=== PATIENT | female | born 2000 | race Caucasian/White ===

== ENCOUNTER 2020-11-03 21:03 | Emergency (ER) | payer MEDICAID ==
[~2020-11-03] VITALS: Ht 152.4 cm; Wt 54.4 kg
[2020-11-03 21:05] VITALS: BP 120/58; Ht 152.4 cm; Wt 54.4 kg
== END 2020-11-03 21:23 | disposition short-term general hospital (02) ==
LOC: D.ER 21:03
DX: R10.9 Unspecified abdominal pain (principal)

== ENCOUNTER 2020-11-03 22:02 | Observation (INO) | payer MEDICAID ==
[2020-11-03 22:55] LABS: BILIRUBIN NEGATIVE (NEGATIVE); KETONE NEGATIVE (NEGATIVE); NITRITE NEGATIVE (NEGATIVE); UROBILINOGEN NORMAL mg/dL (< 2)
[2020-11-03 22:58] LABS: BACTERIA FEW HPF (NONE SEEN); WHITE CELLS - URINE 0-5 HPF (0-4)
[2020-11-03 23:04] LABS: UDS - AMPHET NEGATIVE QUAL (NEGATIVE); UDS - BARB NEGATIVE QUAL (NEGATIVE); UDS - BENZO NEGATIVE QUAL (NEGATIVE); UDS - COCAINE NEGATIVE QUAL (NEGATIVE); UDS - OPIATE NEGATIVE QUAL (NEGATIVE); UDS - PCP NEGATIVE QUAL (NEGATIVE); UDS - THC NEGATIVE QUAL (NEGATIVE)
[2020-11-04 19:51] VITALS: BP 113/51
--- NOTE | 2020-11-04 19:51 | NUR ---
PT REC'D IN BED AT THIS TIME. ASLEEP BUT EASILY AWAKENED. DENIES PAIN AT THIS TIME. SALINE LOCK TO THE RT FOREARM. NO REDNESS NOTED TO SITE. AFEBRILE. CALL LIGHT IN PT REACH. Jessy ALFORD RN
--- NOTE | 2020-11-04 20:33 | NUR ---
PT MEDICATED FOR PAIN OF 8/10 TO THE RT FLANK. Jessy ALFORD RN
--- NOTE | 2020-11-04 21:11 | NUR ---
PT REC'D IN BED AT THIS TIME. SATES THAT PAIN IS A 3/10. NO DISTRESS NOTED. Jessy ALFORD RN
--- NOTE | 2020-11-04 22:25 | NUR ---
SALINE LOCK FLUSHED AT THIS TIME. ROCEPHIN UP PER MD ORDER. Jessy ALFORD RN
--- NOTE | 2020-11-04 23:11 | NUR ---
PT MEDICATED WITH AMBIEN 10 MG PER REQUEST. Jessy ALFORD RN
[2020-11-05 01:31] VITALS: BP 105/52
--- NOTE | 2020-11-05 01:31 | NUR ---
PT RESTING WELL AT THIS TIME. AFEBRILE. VSS. FHTS 145 VIA DOPPLER. NO DISTRESS NOTED. Jessy ALFORD RN
--- NOTE | 2020-11-05 03:04 | NUR ---
PT RESTING WELL AT THIS TIME. NO DISTRESS NOTED. Jessy ALFORD RN
== END 2020-11-05 09:00 | disposition home or self-care (01) ==
LOC: D.LDO 22:02 → D.LD 22:06 → D.LDO 11-04 14:38 → D.LD 11-04 14:59 → OBSVTIME 11-04 14:59 → D.LD 11-04 14:59
PROVIDERS: ADMIT Obstetrics & Gynecology; ATTEND Obstetrics & Gynecology
DX: N39.0 Urinary tract infection, site not specified (principal); R10.9 Unspecified abdominal pain; M54.9 Dorsalgia, unspecified; R11.2 Nausea with vomiting, unspecified

== ENCOUNTER → 2020-12-12 15:55 | Outpatient (CLI) | payer MEDICAID ==
[2020-12-12 17:23] LABS: BILIRUBIN NEGATIVE (NEGATIVE); KETONE NEGATIVE (NEGATIVE); NITRITE NEGATIVE (NEGATIVE); UROBILINOGEN NORMAL mg/dL (< 2)
[2020-12-12 17:25] LABS: BACTERIA MODERATE HPF (NONE SEEN); SQUAMOUS EPITHELIAL 0-5 HPF (0-4); WHITE CELLS - URINE 0-5 HPF (0-4)
== END | disposition home or self-care (01) ==
LOC: D.LDO 15:55
PROVIDERS: ATTEND Obstetrics & Gynecology
DX: O47.9 False labor, unspecified (principal)

== ENCOUNTER 2020-12-31 00:11 | Observation (INO) | payer MEDICAID ==
[~2020-12-31] VITALS: Ht 152.4 cm; Wt 60.0 kg
[2020-12-31 00:24] VITALS: Ht 152.4 cm; Wt 60.0 kg
[2020-12-31] MEDS ORDERED: MACROBID100 MG PO (00:26)
[2020-12-31 00:50] LABS: BASOPHILS 0.1 % (0-2); EOSINOPHILS 0.1 % (0-7); HEMOGLOBIN 11.1 g/dL (12-16); IMMATURE GRANULOCYTES 0.4 % (0-5); LYMPHOCYTE ABS# 0.36 10x3/uL (1.18-3.74); LYMPHOCYTES 2.2 % (15-50); MCH 28.8 pg (26.0-34.0); MCHC 33.6 g/dL (31.0-37.0); MCV 85.5 fL (80.0-100.0); MEAN PLATELET VOLUME 9.2 fL (7.4-10.4); MONOCYTES 4.2 % (2-11); NEUTROPHIL ABS# 14.93 10x3/uL (1.56-6.13); PLATELET COUNT 357 10x3/uL (130-400); RBC 3.86 10x6/uL (4.00-5.40); RDW 12.2 % (11.5-14.5); WBC 16.1 10x3/uL (4.8-10.8)
[2020-12-31 00:59] LABS: CALC OSMOLALITY 270 mosm/kg (275-300); CALCIUM 8.7 mg/dL (8.5-10.1); CARBON DIOXIDE 21.8 mmol/L (21.0-32.0); CHLORIDE - SERUM 103 mmol/L (98-107); CREATININE - SERUM 0.7 mg/dL (0.6-1.3); GLUCOSE 120 mg/dL (74-106); POTASSIUM - SERUM 3.7 mmol/L (3.5-5.1); SODIUM 136 mmol/L (136-145); UREA NITROGEN 8 mg/dL (7-18); eGFR NON AFRICAN AMERICAN > 90 mL/min (90-120)
[2020-12-31 01:02] LABS: BILIRUBIN NEGATIVE (NEGATIVE); KETONE MODERATE mg/dL (NEGATIVE); NITRITE NEGATIVE (NEGATIVE); UROBILINOGEN NORMAL mg/dL (< 2)
[2020-12-31 01:03] LABS: BACTERIA MODERATE HPF (NONE SEEN); SQUAMOUS EPITHELIAL 0-5 HPF (0-4)
[2020-12-31 01:04] LABS: ALBUMIN 2.7 g/dL (3.4-5.0); ALKALINE PHOSPHATASE 86 U/L (30-120); ALT (SGPT) 13 U/L (10-68); BILIRUBIN - TOTAL 0.57 mg/dL (0.2-1.3); PROTEIN - SERUM 6.9 g/dL (6.4-8.2)
[2020-12-31 02:55] VITALS: BP 124/82
[2020-12-31 07:05] LABS: BILIRUBIN NEGATIVE (NEGATIVE); KETONE MODERATE mg/dL (NEGATIVE); NITRITE NEGATIVE (NEGATIVE); UROBILINOGEN NORMAL mg/dL (< 2)
[2020-12-31 07:08] LABS: AMORPHOUS SEDIMENT <1+ LPF (NONE SEEN); BACTERIA MODERATE HPF (NONE SEEN); SQUAMOUS EPITHELIAL RARE HPF (0-4); WHITE CELLS - URINE RARE HPF (0-4)
== END 2020-12-31 12:00 | disposition home or self-care (01) ==
LOC: D.ER 00:11 → D.LD 03:13 → OBSVTIME 03:14 → D.LD 12:00
PROVIDERS: Family Medicine; ADMIT Obstetrics & Gynecology; ATTEND Obstetrics & Gynecology
DX: O23.43 Unspecified infection of urinary tract in pregnancy, third trimester (principal); Z3A.29 29 weeks gestation of pregnancy; E86.0 Dehydration; A08.4 Viral intestinal infection, unspecified

== ENCOUNTER → 2021-01-10 12:20 | Outpatient (CLI) | payer MEDICAID ==
[~2021-01-10] VITALS: Ht 152.4 cm; Wt 60.0 kg
[~2021-01-10 12:20] MED LIST: MACROBID100 MG PO
[2021-01-10 12:53] VITALS: BP 123/64; Ht 152.4 cm; Wt 60.0 kg
[2021-01-10 14:01] LABS: BILIRUBIN NEGATIVE (NEGATIVE); KETONE NEGATIVE (NEGATIVE); NITRITE NEGATIVE (NEGATIVE); UROBILINOGEN NORMAL mg/dL (< 2); WHITE CELLS - URINE 0-5 HPF (0-4)
[2021-01-10 14:02] LABS: AMORPHOUS SEDIMENT MODERATE LPF (NONE SEEN); BACTERIA MODERATE HPF (NONE SEEN)
[2021-01-10 14:03] LABS: HEMATOCRIT 30.4 % (36.0-48.0); HEMOGLOBIN 10.2 g/dL (12-16); LYMPHOCYTE ABS# 1.46 10x3/uL (1.18-3.74); MCH 28.3 pg (26.0-34.0); MCHC 33.6 g/dL (31.0-37.0); MCV 84.4 fL (80.0-100.0); MEAN PLATELET VOLUME 9.4 fL (7.4-10.4); NEUTROPHIL ABS# 7.24 10x3/uL (1.56-6.13); PLATELET COUNT 379 10x3/uL (130-400); RDW 12.2 % (11.5-14.5); WBC 9.8 10x3/uL (4.8-10.8)
[2021-01-10 14:06] LABS: LYMPHOCYTES 14 % (15-50); MONOCYTES 11 % (2-11); NEUTROPHILS 75 % (40-80); PLATELET ESTIMATE NORMAL
[2021-01-10 14:09] LABS: CALC OSMOLALITY 271 mosm/kg (275-300); CALCIUM 8.8 mg/dL (8.5-10.1); CARBON DIOXIDE 24.5 mmol/L (21.0-32.0); CHLORIDE - SERUM 102 mmol/L (98-107); CREATININE - SERUM 0.6 mg/dL (0.6-1.3); GLUCOSE 112 mg/dL (74-106); POTASSIUM - SERUM 3.6 mmol/L (3.5-5.1); SODIUM 137 mmol/L (136-145); UREA NITROGEN 4 mg/dL (7-18); eGFR NON AFRICAN AMERICAN > 90 mL/min (90-120)
[2021-01-10 14:14] LABS: ALBUMIN 2.6 g/dL (3.4-5.0); ALKALINE PHOSPHATASE 91 U/L (30-120); ALT (SGPT) 17 U/L (10-68); BILIRUBIN - TOTAL 0.34 mg/dL (0.2-1.3); PROTEIN - SERUM 6.6 g/dL (6.4-8.2)
== END | disposition home or self-care (01) ==
LOC: D.LDO 12:20 → D.ER 12:20 → EDSTATUS 14:32
PROVIDERS: Emergency Medicine; ATTEND Obstetrics & Gynecology
DX: O35.9XX0 Maternal care for (suspected) fetal abnormality and damage, unspecified, not applicable or unspecified (principal)

== ENCOUNTER → 2021-02-15 09:21 | Outpatient (CLI) | payer MEDICAID ==
[2021-01-10 12:53] VITALS: BMI 25.8
== END | disposition home or self-care (01) ==
LOC: D.LDO 09:21
PROVIDERS: ATTEND Obstetrics & Gynecology
DX: O26.899 Other specified pregnancy related conditions, unspecified trimester (principal)

== ENCOUNTER 2021-02-28 23:51 | Outpatient (CLI) | payer MEDICAID ==
[2021-01-10 12:53] VITALS: BMI 25.8
== END 2021-03-01 00:34 | disposition home or self-care (01) ==
LOC: D.LDO 23:51 → D.LD 23:52 → D.LDO 03-01 00:34
PROVIDERS: ATTEND Obstetrics & Gynecology
DX: O26.899 Other specified pregnancy related conditions, unspecified trimester (principal); R10.30 Lower abdominal pain, unspecified

== ENCOUNTER 2021-03-06 06:09 | Inpatient (IN) | payer MEDICAID ==
[~2021-03-06] VITALS: Ht 152.4 cm; Wt 68.0 kg
[2021-03-06 06:20] VITALS: BP 119/69; Ht 152.4 cm; Wt 68.0 kg
[2021-03-06 08:04] LABS: HEMATOCRIT 25.7 % (36.0-48.0); HEMOGLOBIN 8.4 g/dL (12-16); MCH 24.2 pg (26.0-34.0); MCHC 32.5 g/dL (31.0-37.0); MCV 74.5 fL (80.0-100.0); MEAN PLATELET VOLUME 8.2 fL (7.4-10.4); RBC 3.45 10x6/uL (4.00-5.40); RDW 15.6 % (11.5-14.5); WBC 10.4 10x3/uL (4.8-10.8)
[2021-03-06 08:19] LABS: UDS - AMPHET NEGATIVE QUAL (NEGATIVE); UDS - BARB NEGATIVE QUAL (NEGATIVE); UDS - BENZO NEGATIVE QUAL (NEGATIVE); UDS - COCAINE NEGATIVE QUAL (NEGATIVE); UDS - OPIATE NEGATIVE QUAL (NEGATIVE); UDS - PCP NEGATIVE QUAL (NEGATIVE); UDS - THC NEGATIVE QUAL (NEGATIVE)
[2021-03-06 08:26] LABS: BACTERIA MOD HPF (<MOD); BILIRUBIN NEGATIVE (NEGATIVE); KETONE NEGATIVE mg/dL (< 1+); NITRITE NEGATIVE (NEGATIVE); SQUAMOUS EPITHELIAL 12 HPF (0-4); UROBILINOGEN NORMAL mg/dL (< 2); WHITE CELLS - URINE 15 HPF (0-4)
--- NOTE | 2021-03-07 08:02 | NUR ---
PT C/O UNRESOLVED PAIN. REPORT TO . NEW ORDERS REC'D
--- NOTE | 2021-03-07 08:27 | NUR ---
RECOVERY FINISHED- PATIENT STABLE, VSS.
--- NOTE | 2021-03-07 10:00 | NUR ---
ROUNDS MADE. ICE WATER AND FRESH ICE PACK FOR INCISIONAL PAIN PROVIDED TO PATIENT PER REQUEST. PT DENIES PAIN OR FURTHER NEEDS AT THIS TIME
--- NOTE | 2021-03-07 13:59 | NUR ---
FREDY-CARE, AND LARA CARE PROVIDED. PARTIAL LINEN CHANGE
[2021-03-07 15:00] VITALS: BP 129/60
--- NOTE | 2021-03-07 15:09 | NUR ---
AT BEDSIDE. VSS, PATIENT RESTING QUIETLY. DENIES NEEDS AT THIS TIME
--- NOTE | 2021-03-07 18:27 | NUR ---
IN ROOM FOR ROUNDS. PT RESTING QUIETLY. TOLERATED REGULAR DIET FREDY-CARE DONE, LINENS PARTIALLY CHANGED. PT DENIES PAIN OR FURTHER NEEDS AT THIS TIME.
--- NOTE | 2021-03-07 18:48 | NUR ---
VIVIEN RN AND Karthik REEVES RN TO BEDSIDE FOR BEDSIDE SHIFT REPORT. PT CURRENTLY SITTING UP IN BED FEEDING BABY. SHIFT ASSSESSMENT HELD UNTIL FEEDING IS COMPLETED. PT'S PAIN ASSESSED. PT REPORTS PAIN 2/10 WHEN SHE IS LYING OR SITTING STILL AND 7-8/10 W/MOVEMENT. PT DENIES NEEDS AT THIS TIME.
--- NOTE | 2021-03-07 19:38 | NUR ---
CALL MADE TO DR SALINAS FOR NEW ORDERS. ORDERS REC'D PT MAY BE NORMALIZED POSTOP AND TYLENOL TO BE D/C'D W/PERCOCET 5/325MG AND PERCOCET 10/325MG PO STARTED.LARA TO BE D/C'D.
--- NOTE | 2021-03-07 19:58 | NUR ---
RN TO BEDSIDE FOR SHIFT ASSESSMENT. PT FOUND TO BE SLEEPING IN HIGH ADDISON'S. RESP EVEN AND UNLABORED. SNORING AUDIBLE. PT LEFT UNDISTURBED AT THIS TIME TO ALLOW FOR REST.
[2021-03-07 20:40] VITALS: BP 118/69
--- NOTE | 2021-03-07 20:40 | NUR ---
RN TO BEDSIDE FOR SHIFT ASSESSMENT. PT NOW AA&O X 4. PAIN ASSESSED. PT REPORTS LOWER ABD PAIN 7/10 THAT SHE DESCRIBES SHARP. SEE FLOWSHEET FOR DOCUMENTATION. LARA D/C'D INTACT. APPROX 160ML DARK URINE NOTED IN UROMETER. POC FOR PM SHIFT DISCUSSED W/PT. PT VERBALIZES UNDERSTANDING AND AGREEABLE. PT MEDICATED W/1 TAB PERCOCET 10 AND SERVED APPLE JUICE. I.S. EDUCATION GIVEN. PT PERFORMS I.S. X 3 W/WEAK EFFORT. ONLY ABLE TO PULL 1500ML. COUGHS X 3 W/WEAK EFFORT. GOALS DISCUSSED W/PT. PT VERBALIZES UNDERSTANDING. CLEAN PERIPAD PLACED. BED IN LOW POSITION W/SIDE RAILS UP X 2. CALL LIGHT AND PHONE AT BEDSIDE. SALINE LOCK FLUSHED. FLUSHES WELL. SITE WNL. W/OUT REDNESS OR SWELLING. ROOM STRAIGHTENED. PT VERBALZIES UNDERSTANDING THAT SHE IS TO CALL RN WHEN SHE FEELS THE URGE TO VOID.
--- NOTE | 2021-03-07 22:00 | NUR ---
RN TO BEDSIDE FOR PAIN REASSESSMENT. PT REPORTS PAIN IS 2/10 NOW. WHILE AT BEDSIDE, PT REPORTS SHE IS READY TO GET UP TO THE BR. SCD WRAPS DISCONNECTED. PT OOB W/OUT ASSISTANCE. AMBULATES W/A STEADY GAIT TO BR. ABLE TO VOID APPROX 300ML IN NUNS CAP. PERICARE DONE. PANTIES AND PERIPAD PROVIDED. PT BACK TO BED W/OUT ASSISTANCE. SCD WRAPS RECONNECTED TO PUMP. PUMP IS ON AND FUNCTIONING. PT DENIES FURTHER NEEDS AT THIS TIME. BEDSIDE TABLE AT PT'S SIDE W/CALL LIGHT AND PHONE.
--- NOTE | 2021-03-08 | NUR ---
RN TO BEDSIDE FOR ROUNDING, VITAL SIGNS AND TORADOL ADMIN. PT CURRENTLY SITTING UP IN BED FEEDING BABY. SEE FLOWSHEET AND EMAR. PT DENIES NEEDS AT THIS TIME.
[2021-03-08 00:03] VITALS: BP 112/62
--- NOTE | 2021-03-08 01:58 | NUR ---
RN TO BEDSIDE FOR ROUNDING. PT AWAKE TENDING TO BABY. PAIN AND NEEDS ASSESSED. PT REPORTS PAIN 5/10. PAIN MEDICATION OFFERED. PT ACCEPTS. PERCOCET 10/325MG 1 TAB GIVEN. PT DENIES FURTHER NEEDS. PT ENCOURAGED TO REST. SEE EMAR
--- NOTE | 2021-03-08 02:59 | NUR ---
ROUNDS MADE. PT CURRENTLY GETTING READY TO FEED BABY. PAIN REASSESSED. PT REPORTS PAIN IS 2-3/10. DENIES NEEDS OR REQUESTS FOR ADDITIONAL PAIN INTERVENTIONS AT THIS TIME.
--- NOTE | 2021-03-08 03:30 | NUR ---
PT RINGS CALL LIGHT. THIS RN TO BEDSIDE. PT REQUESTING TO GET UP TO THE BR. PT OOB W/OUT ASSIST. AMBULATES W/STEADY GAIT TO BR. SCANT TO NO LOCHIA NOTED. PT ABLE TO VOID APPROX 300ML URINE IN NUNS CAP. CLEAN PERIPAD PLACED. PT BACK TO BED W/OUT ASSIST.SCD WRAPS REMAIN ON PT. RECONNECTED TO PUMP. PUMP IS ON AND FUNCTIONING. FRESH ICE WATER AND APPLE JUICE SERVED. BABY IN OPEN CRIB AT BEDSIDE. PT DENIES FURTHER NEEDS. RATES PAIN 2/10. PERFORMS I.S. X 3 W/GOOD EFFORT. ABLE TO PULL [phone]. COUGHS W/WEAK EFFORT.
[2021-03-08 06:14] LABS: BASOPHILS 0.2 % (0-2); MEAN PLATELET VOLUME 7.6 fL (7.4-10.4)
[2021-03-08 06:18] LABS: EOSINOPHILS 0.8 % (0-7); HEMATOCRIT 20.9 % (36.0-48.0); LYMPHOCYTES 10.1 % (15-50); MCH 23.6 pg (26.0-34.0); MCHC 31.8 g/dL (31.0-37.0); MCV 74.3 fL (80.0-100.0); MONOCYTES 5.5 % (2-11); NEUTROPHILS 83.4 % (40-80); PLATELET COUNT 295 10x3/uL (130-400); RBC 2.81 10x6/uL (4.00-5.40); RDW 15.7 % (11.5-14.5)
[2021-03-08 06:28] LABS: WBC 13.7 10x3/uL (4.8-10.8)
[2021-03-08 06:29] LABS: HEMOGLOBIN 6.6 g/dL (12-16)
--- NOTE | 2021-03-08 06:30 | NUR ---
RN TO BEDSIDE FOR VITAL SIGNS/ROUNDING. PT CURRENTLY SITTING UP IN BED W/BABY UP IN ARMS. BABY TRANSFERED TO DAD. VITALS SIGNS OBTAINED. PAIN ASSESSED. PT REPORTS PAIN 5/10. PEROCET 10/325MG 1 TAB GIVEN. SEE EMAR. PT DENIES NEEDS AT THIS TIME.
--- NOTE | 2021-03-08 06:30 | NUR ---
CLARISA FROM LAB CALLED CRITICAL LAB RESULT OF 6.6 HG. REPORTED LAB TO PRIMARY RN. ORDER PLACED FOR REPEAT CBC AT THIS TIME PER CHARGE NURSE Ginger AVILA RN.
[2021-03-08 06:32] VITALS: BP 125/72
--- NOTE | 2021-03-08 07:01 | NUR ---
THIS RN TO ROOM WITH KOBI COTTO FOR BEDSIDE REPORT. POC DISCUSSED. PT DENIES NEEDS AT THIS TIME. SRUx2, CL IN REACH.
[2021-03-08 07:03] LABS: EOSINOPHILS 0.7 % (0-7); HEMATOCRIT 23.2 % (36.0-48.0); MCH 23.6 pg (26.0-34.0); MEAN PLATELET VOLUME 7.3 fL (7.4-10.4); RBC 3.08 10x6/uL (4.00-5.40)
[2021-03-08 07:04] LABS: BASOPHILS 0.2 % (0-2); LYMPHOCYTES 10.8 % (15-50); MCHC 31.4 g/dL (31.0-37.0); MCV 75.2 fL (80.0-100.0); MONOCYTES 5.9 % (2-11); NEUTROPHILS 82.4 % (40-80); PLATELET COUNT 315 10x3/uL (130-400); RDW 15.8 % (11.5-14.5); WBC 14.9 10x3/uL (4.8-10.8)
[2021-03-08 07:13] LABS: HEMOGLOBIN 7.3 g/dL (12-16)
[2021-03-08 07:15] VITALS: BP 124/62
--- NOTE | 2021-03-08 07:15 | NUR ---
AM ASSESSMENT COMPLETED, PT DENIES HEAVY BLEEDING OR PASSING CLOTS. SEE FLOWSHEET. MILD EDEMA NOTED TO ANKLES/FEET UPON TAKING SCDS OFF FOR PT'S REQUEST TO GET UP TO THE BATHROOM TO VOID. PT DENIES SOB, N/V, DIZZINESS, DIFFICULTY BREATHING OR CHEST PAIN. ABDOMEN SOFT, TENDER TO TOUCH, BOWEL SOUNDS HYPOACTIVE, PT REPORTS SHE IS PASSING GAS, NO N/V. LARGE ICE WATER SERVED. PT THEN ASSISTED UP TO BR, GAIT SLOW, BUT STEADY. VOIDS 250 ML YELLOW URINE, PERICARE DONE PER SELF WITH WARM WET WASHCLOTHS, NEW PERIPADS/PANTIES ON. DENIES ALL OTHER NEEDS. SRUP X21, CL/PHONE WITHIN REACH.
--- NOTE | 2021-03-08 08:43 | NUR ---
PT PRESSES CALL LIGHT WITH REQUEST FOR NURSE TO ROOM. PT REQUESTS NEW LINENS FOR INFANT DUE TO INFANT SPITTING UP. PT CHANGES INFANT SHIRT, ASSISTED WITH SWADDLING INFANT IN NEW BLANKETS. PT C/O INCISIONAL PAIN RATED 3/10, WORSE WITH MOVEMENT, ASKING IF SHE MAY HAVE SOMETHING FOR PAIN. PT ADMIN MOTRIN ORDERED PRN, SEE EMAR FOR DOC. APPLE JUICE ALSO GIVEN PER REQUEST. PT DENIES FURTHER NEEDS AT THIS TIME. INFANT PLACED IN [place] ON BACK. PT SITTING UP IN BED. SRUx2, CL IN REACH. INSTRUCTED TO CALL FOR ANY NEEDS.
--- NOTE | 2021-03-08 08:55 | NUR ---
DR JUAN PHONES UNIT, CALLBACK AND REPORT GIVEN ON AM LABS, PT VS AND DENIAL OF FEELING DIZZY OR LIGHTHEADED. REPORT ALSO GIVEN ON DIFFICULTY WITH IV ACCESS ON PT PER REPORTS FROM PM SHIFT OF MULTIPLE IV'S STOPPING WORKING. ORDER RECEIVED TO REDRAW HEMOGRAM AT 1200 AND WILL COME SEE PT AROUND LUNCH.
--- NOTE | 2021-03-08 10:10 | NUR ---
THIS RN TO ROOM PER PT REQUEST. PT WANTS TO VERIFY IF SHE MAY GET UP TO BR WITHOUT ASSIST FROM NURSE. PT REASSURED SHE MAY GET UP TO BR INDEPENDENTLY NOW, BUT TO CALL FOR ASSIST IF NEEDED OR IF SHE FEELS DIZZY OR LIGHTHEADED. UNDERSTANDING VERBALIZED. SRUx2, CL IN REACH. PT SIG OTHER IN ROOM FOR ASSIST IF NEEDED.
--- NOTE | 2021-03-08 13:15 | NUR ---
DR JUAN TO ROOM FOR ROUNDING. HEMOGRAM DRAWN AND SENT TO LAB.
[2021-03-08 13:22] LABS: HEMATOCRIT 22.8 % (36.0-48.0); MCH 23.8 pg (26.0-34.0); MCHC 32.1 g/dL (31.0-37.0); MCV 74.1 fL (80.0-100.0); MEAN PLATELET VOLUME 7.3 fL (7.4-10.4); RBC 3.07 10x6/uL (4.00-5.40); WBC 14.9 10x3/uL (4.8-10.8)
[2021-03-08 13:28] LABS: HEMOGLOBIN 7.3 g/dL (12-16)
--- NOTE | 2021-03-08 13:30 | NUR ---
CRITICAL HGB OF 7.3 CALLED TO UNIT FROM CLARISA IN LAB. DR JUAN ON UNIT AND REPORT GIVEN ON HGB OF 7.3. ORDER RECEIVED FOR CBC AND BMP AT 0500 TOMORROW MORNING, AND PT MAY HAVE BLOOD TRANSFUSION OF 2 UNITS PRBC IF SHE DECIDES SHE WANTS IT.
[2021-03-08 13:50] VITALS: BP 117/62
--- NOTE | 2021-03-08 13:50 | NUR ---
VSS, SEE FLOWSHEET FOR DOC. PT CONTINUES TO DENY FEELING DIZZY OR LIGHTHEADED WHEN UP TO SHOWER. DISCUSSED WITH PT THAT DR JUAN HAS OFFERED FOR HE TO HAVE A BLOOD TRANSFUSION IF SHE WISHES PER LOW HGB. PT DENIES WANTING TRANSFUSION AT THIS TIME, VERBALIZES UNDERSTANDING OF OPTION IF SHE WISHES. SRUx2, CL IN REACH.
--- NOTE | 2021-03-08 15:30 | NUR ---
PT STATES SHE WILL WANT TO SHOWER LATER. TOWELS AND SHOWER SUPPLIES PROVIDED. PT STATES SHE WILL PROBABLY NEED HELP WASHING INCISION WHEN SHE SHOWERS. INSTRUCTED TO NOTIFY THIS RN WHEN READY AND WILL ASSIST.
--- NOTE | 2021-03-08 16:30 | NUR ---
PT CALLS OUT DRAIN CLEANER PLUMBER LIGHT REQUESTING "BOTH PAIN MEDS" FOR PAIN RATED 8/10. PERCOCET AND MOTRIN ADMIN ORDERED, SEE EMAR FOR DOC. PT STATES SHE FEELS LIKE SHE NEEDS TO URINATE. PT UP TO BR AND VOIDS LARGE AMOUNT UNMEASURED URINE. PT STATES SHE FEELS "SO MUCH RELIEF" AFTER VOIDING. PT ENCOURAGED TO EMPTY BLADDER REGULARLY TO DECREASE CRAMPING AND BLEEDING. UNDERSTANDING VERBALIZED. STATES WILL WAIT FOR PAIN MEDS TO TAKE EFFECT BEFORE SHOWERING.
--- NOTE | 2021-03-08 17:50 | NUR ---
PT UP TO SHOWER WITH ASSIST FROM THIS RN AT 1735. INSTRUCTED ON INCISION CARE AND WASHING DAILY WITH SOAP AND WATER. PT OUT OF SHOWER AND PLACED IN CLEAN GOWN, PADS, AND PANTIES. BED PAD CHANGED. PT VOIDS MOD AMOUNT URINE. BACK TO BED WITHOUT ASSIST. STATES SHE FEELS MUCH BETTER AFTER MEDS AND SHOWERING. RAES PAIN 10/17. SRUx2, CL IN REACH.
--- NOTE | 2021-03-08 18:30 | NUR ---
PT CALLS OUT AND REQUESTS APPLE JUICE. PROVIDED TO PT BY KOBI MINAYA.
[2021-03-08 19:15] VITALS: BP 125/64
--- NOTE | 2021-03-08 19:15 | NUR ---
INTRODUCED SELF TO PT. BY PREVIOUS RN TO PROVIDE CARE. INSTRUCTED PT. THAT I WILL BE HER PRIMARY NURSE FOR THIS 12 HOUR SHIFT. DISCUSSED CONTINUED PLAN OF CARE WITH PT. AND S/O AT BEDSIDE CONCERNING MEDICATIONS ORDERED FOR PAIN RELIEF. PT. VERBALIZES UNDERSTANDING. VITALS PERFORMED AND STABLE. ASSESSMENT COMPLETED. SEE FLOWSHEET. BIKINI LINE INCISION WITH DERMABOND IS C/D/I. PT. REPORTS "BURNING" AT THIS TIME. INSTRUCTED PT. REGARDING ICE PACK AND ADVISED I WILL BRING HER ONE BACK SHORTLY. 20 G. IV CATH IN RIGHT HAND IS SALINE LOCKED. FUNDUS FIRM, MIDLINE, U/-1 WITH SCANT TO LIGHT LOCHIA RUBRA NOTED. NO CLOTS EXPELLED WITH MASSAGE. DISCUSSED WITH PT. THAT WE CAN TAKE HER SALINE OUT IF SHE WOULD LIKE DUE TO HER NOT GETTING ANY FLUIDS OR MEDS THROUGH HER IV BUT ADVISED PT. THAT I DO HOWEVER, HAVE TO CHECK HER LABS IN THE MORNING SO THERE IS STILL A POSSIBILITY THAT SHE WILL NEED TO HAVE A BLOOD TRANSFUSION. PT. REQUEST TO KEEP IN CURRENT SALINE LOCK FOR THIS TIME.
--- NOTE | 2021-03-08 20:30 | NUR ---
PT. SALES ASSOCIATE LIGHT AND REQUEST PAIN MEDICATION AT THIS TIME. PT. RATING PAIN AT "7" ON 0-10 SCALE. PERCOCET 10/325 MG 1 TAB ADMINISTERED ORALLY ORDERED AND REQUESTED. WILL CONT. TO MONITOR. PT. REQUEST ANOTHER 2 BLANKETS AND A SHIRT FOR BECAUSE "HE SPAT UP ON HIM AFTER HE ATE". PROVIDED REQUESTED. WILL CONT. TO MONITOR.
--- NOTE | 2021-03-08 21:10 | NUR ---
PT. LYING IN HIGH FOWLERS POSITION WITH IN CRIB AT BEDSIDE. PT. REPORTS "ITS DOING BETTER" WHEN ASKED REGARDING PAIN AT INCISIONAL AREA REPORTED EARLIER. PT. NOW RATES AT "3" ON 0-10 SCALE. PT. REPORTS "IM GOING TO TRY TO TAKE A NAP FOR A LITTLE BIT". CALL LIGHT WITHIN REACH.
--- NOTE | 2021-03-08 21:38 | NUR ---
PT. TENDING TO IN CRIB AT BEDSIDE UPON ENTERING ROOM. PT. REPORTS "NO, IM GONNA FEED HIM HERE IN ABOUT 30 MINUTES" WHEN ASKED IF SHE WANTED ME TO TAKE TO NURSERY SO THAT SHE COULD GET SOME SLEEP. PT. DENIES ANY FURTHER NEEDS.
--- NOTE | 2021-03-08 22:54 | NUR ---
MOTRIN 600 MG TABLET ADMINISTERED ORALLY PER MD ORDERS AND PT.'S REQUEST. PT. RATES PAIN AT "4" ON 0-10 SCALE AT THIS TIME. VITALS TAKEN AND STABLE. SEE GRAPH. PT. DENIES FURTHER NEEDS OR CONCERNS AT THIS TIME. WILL CONT. TO FOLLOW.
[2021-03-08 22:55] VITALS: BP 124/73
--- NOTE | 2021-03-09 01:20 | NUR ---
PT. HANDBAG FRAMES INSPECTOR LIGHT AND REQUEST NURSE TO ROOM TO ASSESS INCISION DUE TO BURNING. PT. LYING IN SEMI FOWLERS POSITION UPON ENTERING ROOM. BIKINI LINE INCISION WITH DERMABOND IS C/D/I. INSTRUCTED PT. THAT THE BURNING SENSATION IS NATURAL AND THAT THIS IS THE REASON WE ADVISE TO CONTINUE WITH ICE PACKS THIS IS THE ONLY THING THAT HELPS WITH THIS KIND OF PAIN. OFFERED PT. ANOTHER ICE PACK AT THIS TIME BUT PT. REPORTS "WELL IM ABOUT TO SEND HIM TO THE NURSERY FOR A LITTLE WHILE SO ILL JUST WAIT UNTIL I WAKE UP IN A LITTLE BIT". INSTRUCTED PT. TO JUST LET ME KNOW IF SHE CHANGES HER MIND.
[2021-03-09 03:35] VITALS: BP 114/61
--- NOTE | 2021-03-09 03:35 | NUR ---
PT. AAOX3 UPON ENTERING ROOM. PT. INSTRUCTED A CHANGE IN PAIN MEDICATION TO SEE IF THIS HELPS BETTER OR MAY LAST LONGER THAN THE OTHER. INSTRUCTED PT. THAT THEY ARE BOTH NARCOTICS BUT JUST HAVE DIFFERENT INGREDIENTS. PT. INSTRUCTED THAT EVERYONE REACTS DIFFERENTLY TO DIFFERENT PAIN MEDICATIONS SO IT IS WORTH A TRY TO SEE IF THIS ONE WORKS BETTER FOR HER. PT. VERBALIZES UNDERSTANDING AND DENIES FURTHER QUESTIONS. PT. RATES PAIN AT "3-4" ON 0-10 SCALE BUT STATES "I HAVEN'T GOTTEN UP TO THE BATHROOM YET THOUGH". VITALS TAKEN AND STABLE. SEE GRAPH. PT. DENIES FURTHER NEEDS AT THIS TIME. INSTRUCTED PT. THAT I WILL RETURN AROUND 0500 TO DRAW AM LABS. PT. VERBALIZES UNDERSTANDING. WILL CONT. TO MONITOR.
--- NOTE | 2021-03-09 04:45 | NUR ---
PT. SITTING UP IN BED FEEDING INFANT UPON ENTERING ROOM. PT. RATES PAIN AT "3" ON 0-10 SCALE. INQUIRED IF PT. WOULD LIKE TO TAKE HER MOTRIN NOW. PT. STATES "YEAH, ILL GO AHEAD AND TAKE IT". PT. REQUEST GRAPE JUICE TO DRINK.
[2021-03-09 05:03] LABS: CALC OSMOLALITY 273 mosm/kg (275-300); CALCIUM 7.9 mg/dL (8.5-10.1); CHLORIDE - SERUM 108 mmol/L (98-107); CREATININE - SERUM 0.6 mg/dL (0.6-1.3); GLUCOSE 79 mg/dL (74-106); SODIUM 138 mmol/L (136-145); UREA NITROGEN 10 mg/dL (7-18); eGFR NON AFRICAN AMERICAN > 90 mL/min (90-120)
[2021-03-09 05:07] LABS: BASOPHILS 0.2 % (0-2); EOSINOPHILS 1.7 % (0-7); HEMATOCRIT 21.4 % (36.0-48.0); LYMPHOCYTES 14.4 % (15-50); MCH 24.2 pg (26.0-34.0); MCHC 32.2 g/dL (31.0-37.0); MCV 75.1 fL (80.0-100.0); MEAN PLATELET VOLUME 7.4 fL (7.4-10.4); MONOCYTES 6.9 % (2-11); NEUTROPHILS 76.8 % (40-80); PLATELET COUNT 340 10x3/uL (130-400); RBC 2.85 10x6/uL (4.00-5.40); RDW 15.7 % (11.5-14.5)
[2021-03-09 05:08] LABS: WBC 10.9 10x3/uL (4.8-10.8)
[2021-03-09 05:09] LABS: HEMOGLOBIN 6.9 g/dL (12-16)
--- NOTE | 2021-03-09 05:11 | NUR ---
PAGED DR. BLOOM TO REPORT CRITICAL HGB OF 6.9
--- NOTE | 2021-03-09 05:16 | NUR ---
DR. BLOOM NOTIFIED THAT PT. IS ACCEPTING OF 1 UNIT PRBC'S
--- NOTE | 2021-03-09 05:18 | NUR ---
ORDER FOR 1 UNIT PRBC'S
--- NOTE | 2021-03-09 05:34 | NUR ---
20 G. SALINE LOCK INITIATED IN LEFT AC ON 2ND ATTEMPT. FLUSHES EASILY WITH 10 MLS NS.
--- NOTE | 2021-03-09 05:39 | NUR ---
LAB NOTIFIED OF ORDER FOR 1 UMIT PRBC'S
[2021-03-09 07:45] VITALS: BP 132/67
--- NOTE | 2021-03-09 07:45 | NUR ---
PATIENT ASSESSMENT COMPLETED AT BEDSIDE. VSS. PATIENT COMPLAINS OF PAIN 8/10 AT INCISION. INCISION OPEN TO AIR. PATIENT WITH LEFT AC PIV INFUSING WITH BLOOD AT THIS TIME AT 125 ML/HR. SCD IN PLACE. FUNDUS FIRM AND MIDLINE U -2. PATIENT REPORTS PASSING FLATUS. SIDE RAILS UP X2, BED IN LOW POSITION, CALL LIGHT WITHIN REACH.
--- NOTE | 2021-03-09 10:47 | NUR ---
DISCUSSED WITH PATIENT AT BEDSIDE THE NEED TO RETAKE CBC. PATIENT FIRMLY STATES SHE DOESN'T WANT TO HAVE ANY MORE BLOOD DRAWN. RN UPDATES PATIENT ON THE PLAN OF CARE FOR THE DAY. PATIENT TO DISCHARGE HOME PER DR. JUAN IN STABLE CONDITION, WITH PRECAUTIONS THAT HAVE BEEN GIVEN TO HER PER DR. JUAN.
[2021-03-09] MEDS ORDERED: HYDROCODON-ACE1 EA10 PO (10:58)
[2021-03-09] MEDS ORDERED: GABAPENTIN300 MG PO (10:59)
[2021-03-09] MEDS ORDERED: IBUPROFEN800 MG PO (10:59)
[2021-03-09] MEDS ORDERED: COLACE100 MG PO (11:00)
[2021-03-09] MEDS ORDERED: GAS-X125 M1 PO (11:00)
--- NOTE | 2021-03-09 11:20 | NUR ---
PATIENT TO BE DISCHARGED HOME IN STABLE CONDITION. PATIENT GIVEN COPY OF DISCHARGE INSTRUCTIONS INCLUDING PRESCRIPTIONS, EDUCATION. PATIENT DENIES QUESTIONS OR CONCERNS.
--- NOTE | 2021-03-09 22:20 | OP ---
PATIENT NAME: YURI RIVAS MEDICAL RECORD: [id number] :00 [id number] ADMISSION DATE:03/06/21 SURGEON: CAROLYNE PHILIP DO DATE OF OPERATION: 03/07/2021 PREOPERATIVE DIAGNOSES: Nonreassuring heart tracing, remote from delivery, IUGR, 39 weeks. POSTOPERATIVE DIAGNOSES: Nonreassuring heart tracing, remote from delivery, IUGR 39 weeks. PRIMARY SURGEON: Carolyne Philip DO. ANESTHESIA: Spinal via epidural. PROCEDURE: Low transverse via Pfannenstiel incision. FINDINGS: Viable male born at 4:28 a.m., Apgars 8 and 9, weight 6 pounds 2709 grams. cephalic position Tight nuchal cord times 2. Meconium-stained fluid. Grossly normal uterus, bilateral tubes and ovaries. Double layer closure. Mathew placed SPECIMENS: Cord pH, Placenta, cord blood. ESTIMATED BLOOD LOSS: 900 mL. INTRAVENOUS FLUIDS: Per anesthesia. URINE OUTPUT: 200 mL clear yellow urine. INFECTION PROPHYLAXIS: Clindamycin and abdominal prep. COMPLICATIONS: None. INDICATIONS: Due to decelerations despite resuscitation noted and no cervical change, recommended . Risks include bleeding, pain, infection, damage to surrounding structures, reoperation, VTE and subsequent C-sections were discussed with the patient. The patient expressed understanding and agreed. DESCRIPTION OF PROCEDURE: The patient was taken to the operating room and spinal anesthesia was administered and found to be adequate. She was prepped and draped in normal sterile fashion in dorsal supine position with leftward tilt.Pfannenstiel incision made with scapel and carried down to the underlying layer of fascia. Fascia was incised in midline and incision extended laterally with Reynolds scissors. Fascia grasped with Mendel clamps. Rectus muscle dissected off. Rectus muscle was in the midline. Peritoneum identified and appeared free of bowel or bladder, entered bluntly. Peritoneum was further with gentle traction. Bladder blade placed. Transverse incision was made with scalpel on the uterus. Incision extended with upward and downward gentle traction. Membranes ruptured, meconium-stained fluid noted. 's head brought to the incision and infant was delivered. A vigorous male infant born and urinating Mouth and nose suctioned. Cord was clamped and cut and handed to awaiting pediatric nurse. Placenta delivered manually. Uterus OPERATIVE REPORT [id number] YURI RIVAS exteriorized. Dry lap was used to assure complete removal of placental membranes. Hysterotomy reapproximated with 0 Vicryl in a running locked fashion with good hemostasis. A second layer imbricated with good hemostasis noted. Attention turned to the posterior cul-de-sac, irrigated and suctioned to remove blood clots and fluid. Attention again turned to uterus, slightly boggy, so additional Pitocin added to bolus and massage employed with firming noted. Some slight spotting noted on serosal edge cauterized on the left side. Uterus replaced into the abdominal cavity. The gutters were cleaned with moist laparotomy sponge. Mathew placed on the serosal edge. Muscle reapproximated in the running fashion with 2-0 Monocryl. Muscle was then irrigated and no bleeding was noted. Fascia closed in a running fashion with 0 Vicryl with good hemostasis. Subcutaneous layer irrigated and bleeding vessels were cauterized, then layer closed with plain gut. Skin closed in a subcuticular fashion with 3-0 Monocryl. Dermabond applied. All lap, sponge, needle counts were correct times 2. The patient tolerated the procedure well and was taken to recovery room in stable condition. TRANSINT:[id number] Voice Confirmation ID: [id number] DOCUMENT ID: [id number] CAROLYNE PHILIP DO at 2220 CC: [id number] DICTATION DATE: 03/07/21 0538 SERVICE UNIT OPERATOR OIL WELL: 03/07/21 0752 DIS IN 03/09/21 [facility] [address] [place] [address]
--- NOTE | 2021-03-10 16:31 | MORECARE ---
CASE MANAGEMENT DISCHARGE SUMMARY PATIENT: YURI RIVAS UNIT: [id number] ADM DATE: 03/06/21 AGE: 20 : 00 SEX: F ROOM/BED: D.[id number] AUTHOR: NIKHIL,DOC PHYSICIAN: REFERRING PHYSICIAN: SHAYNE JUAN DO DATE OF SERVICE: 03/10/21 Case Management Discharge Planning Summary DCP REVIEW SUMMARY ANTICIPATED D/C DATE: EXPECTED LOS : CASE STATUS: DCP Initiated INITIAL REVIEW: 03/06/2021 INITIAL REVIEWER: Scarlet Barnard FINAL DISCHARGE DISPOSITION: : FINAL REVIEWER: FINAL REVIEW DATE: DCP [employer] Questions [employer] Answers QUESTION: ANSWER : PATIENT: YURI RIVAS ENCOUNTER: [id number] MEDICAL RECORD#: [id number] ADMISSION DATE: 03/06/2021 DISCHARGE DATE: 03/09/2021 ATTENDING MD: GARCÍA: AGE: 20 MARITAL STATUS: S DC PLAN ID: [id number] FACILITY: [facility] PRINTED ON: 03/10/21 16:31 CT All edits/amendments must be made on the electronic document DICTATION DATE: 03/10/21 163 TICKET ATTENDANT: BRADEN 03/10/21 1631 RPT#: [id number] DC DATE:03/09/21 STATUS: DIS IN [facility] [address] [place] [address] END OF REPORT
== END 2021-03-09 11:46 | disposition home or self-care (01) | DRG 788 ==
LOC: D.LD 06:09
PROVIDERS: ADMIT Obstetrics & Gynecology; ATTEND Obstetrics & Gynecology
PROC: 10D00Z1 Extraction of Products of Conception, Low, Open Approach (ICD-10-PCS; principal; 2021-03-07)
PROC: 3E033VJ Introduction of Other Hormone into Peripheral Vein, Percutaneous Approach (ICD-10-PCS; 2021-03-07)
DX: O76 Abnormality in fetal heart rate and rhythm complicating labor and delivery (principal); O36.5930 Maternal care for other known or suspected poor fetal growth, third trimester, not applicable or unspecified; Z3A.39 39 weeks gestation of pregnancy; Z37.0 Single live birth